=== PATIENT | male | born 1955 | race Caucasian/White ===

== ENCOUNTER 2017-02-19 08:30 | Day surgery (SDC) | payer OTHER ==
[2017-02-16 15:44] VITALS: BMI 29.5
[~2017-02-19 08:30] MED LIST: LEVOFLOXACIN 500 MG PREMIX BAG IVPB ONE
[2017-02-19] MEDS ORDERED: MIDAZOLAM HCL 2 MG/2 ML SINGLE DOSE VIAL ONE (08:53)
[2017-02-19] MEDS ORDERED: PROPOFOL 20 ML ONE (08:54)
[2017-02-19] MEDS ORDERED: LEVOFLOXACIN 500 MG PREMIX BAG IVPB ONE (09:22)
[2017-02-19] MEDS ORDERED: LIDOCAINE HCL/PF 2% SDV 5ML VIAL ONE (09:23)
[2017-02-19] MEDS ORDERED: ONDANSETRON 4 MG/2 ML VIAL IVPUSH PRN (10:09)
[2017-02-19] MEDS ORDERED: oxyCODONE HCL 5 MG TABLET PO PRN (10:09)
[2017-02-19] MEDS ORDERED: LACTATED RINGERS SOLUTION 1,000 ML IV SCH (10:15)
--- NOTE | 2017-02-19 10:23 | OP ---
Operative Note - Note: Operative Date: 02/19/17 Pre-Operative Diagnosis: right renal stone Operation: right ESWL Findings: 5 mm right mid pole renal stone Post-Operative Diagnosis: Same as Pre-op Surgeon: Vince Gomes Anesthesia: Fractional
[2017-02-19 10:55] VITALS: TEMP 97.7
[2017-02-19 12:53] VITALS: BP 135/83; PULSE 65
--- NOTE | 2017-02-19 20:39 | OP ---
DATE OF OPERATION: 02/19/2017 PREOPERATIVE DIAGNOSIS: Right renal stone. POSTOPERATIVE DIAGNOSIS: Right renal stone. PROCEDURE: Right extracorporeal shock wave lithotripsy. ATTENDING: Angelo Nieto MD ANESTHESIA: Fractional. OPERATION: The patient was brought in the operating room, placed in supine position on the operating room table. Ultrasonography and fluoroscopy were performed. A 5-mm right mid-pole stone was identified. Fractional anesthesia and preoperative antibiotics were administered. At this point, extracorporeal shock wave lithotripsy was started; 2500 impulses at 18 joules of power were administered to the stone. Excellent fragmentation of the stone was noted under real-time ultrasonography and fluoroscopy. No complications were noted. The disposition of the patient was to recovery room. ANGELO NIETO M.D. [id number]
== END 2017-02-19 14:02 | disposition home or self-care (01) ==
LOC: JASU-SURG 08:30
PROVIDERS: ATTEND Urology
PROC: 0TF3XZZ Fragmentation in Right Kidney Pelvis, External Approach (ICD-10-PCS; principal; 2017-02-19 09:30)
DX: N20.0 Calculus of kidney (principal)

== ENCOUNTER 2022-01-31 04:10 | Day surgery (SDC) | payer MEDICARE, OTHER ==
[2022-01-25 16:43] VITALS: BMI 30.2
[2022-01-31] MEDS ORDERED: FENTANYL CITRATE/PF 50 MCG/ML VIAL ONE (11:03)
[2022-01-31] MEDS ORDERED: MIDAZOLAM HCL 2 MG/2 ML SINGLE DOSE VIAL ONE (11:03)
[2022-01-31 13:18] VITALS: RESP 20; TEMP 97.5
[2022-01-31 13:21] VITALS: BP 116/65; PULSE 52
== END 2022-01-31 12:26 | disposition home or self-care (01) ==
LOC: JASUSAT 04:10
PROVIDERS: ATTEND Urology
PROC: 0TF3XZZ Fragmentation in Right Kidney Pelvis, External Approach (ICD-10-PCS; principal; 2022-01-31 10:00)
DX: N20.0 Calculus of kidney (principal)